=== PATIENT | female | born 1990 | race Hispanic/Latino ===

== ENCOUNTER 2018-09-22 10:41 | Outpatient (CLI) | payer OTHER | END 2018-09-22 10:42 | disposition home or self-care (01) | LOC: C.LAB 10:41 | DX: N91.1 Secondary amenorrhea (principal) ==

== ENCOUNTER 2018-09-28 11:09 | Emergency (ER) | payer OTHER ==
[2018-09-28 11:21] VITALS: BP 132/87; PULSE 90; RESP 18; TEMP 98.3; O2SAT 100
[2018-09-28] MEDS ORDERED: Sodium Chloride 0.9% 1,000 ML IV STA (11:29)
[2018-09-28] MEDS ORDERED: Sodium Chloride 0.9% 1,000 ML ONE (11:44)
[2018-09-28 11:51] LABS: BASO # 0.1 K/uL (0.0-0.2); BASO % 0.5 % (0.0-2.0); EOS # 0.1 K/uL (0.0-0.7); EOS % 0.7 % (0.0-4.0); HEMOGLOBIN 13.8 g/dL (11.0-16.0); LYMPH # 1.8 K/uL (1.0-4.3); LYMPH % 13.9 % (20.0-40.0); MEAN CELL VOLUME 86.4 fL (81.0-99.0); MEAN CORPUSCULAR HEMOGLOBIN 29.4 pg (27.0-31.0); MEAN PLATELET VOLUME 8.1 fL (7.2-11.7); MONO # 0.6 K/uL (0.0-0.8); MONO % 4.5 % (0.0-10.0); NEUT # 10.6 K/uL (1.8-7.0); NEUT % 80.4 % (50.0-75.0); RBC 4.7 Mil/uL (3.80-5.20); RED CELL DISTRIBUTION WIDTH 13.1 % (11.5-14.5); WHITE BLOOD COUNT 13.2 K/uL (4.8-10.8)
[2018-09-28 11:54] LABS: HCG,QUALITATIVE URINE POSITIVE (NEGATIVE)
[2018-09-28 11:56] LABS: SQUAMOUS EPITHIAL 3 /hpf (0-5); URINE AMORPHOUS SEDIMENT FEW /ul (<OCC); URINE BILIRUBIN NEGATIVE (NEGATIVE); URINE BLOOD NEGATIVE (NEGATIVE); URINE CLARITY Turbid (Clear); URINE COLOR Amber (YELLOW); URINE GLUCOSE (UA) NORMAL (Normal); URINE LEUKOCYTE ESTERASE NEG Leu/uL (Negative); URINE PROTEIN 1+ mg/dL (NEGATIVE); URINE UROBILINOGEN NORMAL mg/dL (0.2-1.0)
[2018-09-28 12:05] LABS: ALB/GLOB RATIO 1.8 (1.0-2.1); ALBUMIN 4.9 g/dL (3.5-5.0); ALT/SGPT 9 U/L (9-52); AST/SGOT 27 U/L (14-36); BLOOD UREA NITROGEN 10 mg/dL (7-17); CALCIUM 9.7 mg/dl (8.6-10.4); GFR NON-AFRICAN AMERICAN > 60
--- NOTE | 2018-09-28 13:01 | US ---
Date of service: 09/28/2018 Indication: , vaginal bleeding Comparison: None available Technique: 1st trimester/Ob transvaginal ultrasound Findings: The uterus measures approximately 9.6 x 5.5 x 7.4 cm. Anteverted. Cervix length measures approximately 2.4 cm. Evidence of somewhat lobulated intrauterine gestational sac measuring approximately 1.5 cm consistent with gestational age 5 weeks 5 days. No evidence of pole or yolk sac at this time. Small probable subchorionic hemorrhage measures 4.2 x 3.3 x 5.7 cm. The right ovary measures 3.7 x 3.5 x 4.0 cm. The left ovary measures 3.5 x 2.8 x 4.6 cm. Blood flow was demonstrated to both ovaries. Impression: Evidence of somewhat lobulated intrauterine gestational sac consistent with gestational age 5 weeks 5 days. No evidence of pole or yolk sac at this time. Small probable subchorionic hemorrhage measures approximately 4.2 x 3.3 x 5.7 cm. Correlate clinically and recommend follow-up as indicated.
--- NOTE | 2018-09-28 13:10 | C.PDOC ---
History Of Present Illness 28 year old female presents to ED with complaint of vaginal bleeding for the past 3 days. Patient is 8 weeks . Patient also complains of pelvic pain and cramping. Patient denies nausea, vomiting, and diarrhea. Time Seen by Provider: 09/28/18 11:23 Chief Complaint (Nursing): Female Genitourinary History Per: Patient History/Exam Limitations: no limitations Onset/Duration Of Symptoms: Days (3) Current Symptoms Are (Timing): Still Present Quality Of Discomfort: Cramping, "Pain" Associated Symptoms: denies: Fever, Nausea, Vomiting, Diarrhea Abnormal Vaginal Bleeding: Yes Last Menstral Period: 08/07/18 Past Medical History Reviewed: Historical Data, Nursing Documentation, Vital Signs Vital Signs: Last Vital Signs Temp 98.3 F 09/28/18 11:19 Pulse 90 09/28/18 11:19 Resp 18 09/28/18 11:19 BP 132/87 09/28/18 11:19 Pulse Ox 100 09/28/18 11:19 - Medical History PMH: No Chronic Diseases Surgical History: No Surg Hx Family History: States: No Known Family Hx - Social History Hx Alcohol Use: No Hx Substance Use: No Review Of Systems Constitutional: Negative for: Fever, Chills, Weakness Gastrointestinal: Negative for: Nausea, Vomiting, Diarrhea Genitourinary: Positive for: Vaginal Bleeding, Pelvic Pain Neurological: Negative for: Weakness, Numbness, Dizziness Physical Exam - Physical Exam Appears: Well, Non-toxic, No Acute Distress Skin: Normal Color, Warm, Dry Head: Atraumatic, Normacephalic Neck: Normal ROM, Supple Chest: Symmetrical, No Deformity Cardiovascular: Rhythm Regular, No Murmur Respiratory: No Accessory Muscle Use Gastrointestinal/Abdominal: Soft, Tenderness (mild suprapubic pain), No Distention, No Rebound Extremity: Capillary Refill (<2 seconds) Neurological/Psych: Oriented x3, Normal Speech, Normal Cognition ED Course And Treatment - Laboratory Results Result Diagrams: 09/28/18 11:46 09/28/18 11:46 Lab Results: Total Bilirubin 0.4 mg/dL (0.2-1.3) 09/28/18 11:46 AST 27 U/L (14-36) 09/28/18 11:46 ALT 9 U/L (9-52) 09/28/18 11:46 Alkaline Phosphatase 56 U/L (38-126) 09/28/18 11:46 Total Protein 7.6 g/dL (6.3-8.3) 09/28/18 11:46 Albumin 4.9 g/dL (3.5-5.0) 09/28/18 11:46 Globulin 2.7 gm/dL (2.2-3.9) 09/28/18 11:46 Albumin/Globulin Ratio 1.8 (1.0-2.1) 09/28/18 11:46 Urine Color Paty (YELLOW) 09/28/18 11:46 Urine Clarity Turbid (Clear) 09/28/18 11:46 Urine pH 8.0 (5.0-8.0) 09/28/18 11:46 Ur Specific [place] 1.019 (1.003-1.030) 09/28/18 11:46 Urine Protein 1+ mg/dL (NEGATIVE) H 09/28/18 11:46 Urine Glucose (UA) Normal mg/dL (Normal) 09/28/18 11:46 Urine Ketones Negative mg/dL (NEGATIVE) 09/28/18 11:46 Urine Blood Negative (NEGATIVE) 09/28/18 11:46 Urine Nitrate Negative (NEGATIVE) 09/28/18 11:46 Urine Bilirubin Negative (NEGATIVE) 09/28/18 11:46 Urine Urobilinogen Normal mg/dL (0.2-1.0) 09/28/18 11:46 Ur Leukocyte Esterase Neg Malachi/uL (Negative) 09/28/18 11:46 Urine RBC (Auto) 1 /hpf (0-3) 09/28/18 11:46 Ur Squamous Epith Cells 3 /hpf (0-5) 09/28/18 11:46 Amorphous Sediment Few /ul (<OCC) H 09/28/18 11:46 Urine HCG, Qual Positive (NEGATIVE) 09/28/18 11:46 Urine HCG, Qual Positive (NEGATIVE) 09/28/18 11:46 O2 Sat by Pulse Oximetry: 100 (in RA) - CT Scan/US OB/Transvaginal US Other Rad Studies (CT/US): Interpreted By Me, Read By Radiologist CT/US Interpretation: Accession No. : [id number]. Patient Name / ID : LOWELL GUERRERO / [id number]. Exam Date : 09/28/2018 12:11:54 ( Approved ). Study Comment : Sex / Age : F / 28Y. Creator : Tayler Alvarez MD. Dictator : Tayler Alvarez MD. Director Of Revenue Cycle Management : [employer] Consultant : Tayler Alvarez MD. Approver2 : Report Date : 09/28/2018 12:57:59. My Comment : . Date of service: 09/28/2018. Indication: , vaginal bleeding. Comparison: None available. Technique: 1st trimester/Ob transvaginal ultrasound. Findings: The uterus measures approximately 9.6 x 5.5 x 7.4 cm. Anteverted. Cervix length measures approximately 2.4 cm. Evidence of somewhat lobulated intrauterine gestational sac measuring approximately 1.5 cm consistent with gestational age 5 weeks 5 days. No evidence of pole or yolk sac at this time. Small probable subchorionic hemorrhage measures 4.2 x 3.3 x 5.7 cm. The right ovary measures 3.7 x 3.5 x 4.0 cm. The left ovary measures 3.5 x 2.8 x 4.6 cm. Blood flow was demonstrated to both ovaries. Impression: Evidence of somewhat lobulated intrauterine gestational sac consistent with gestational age 5 weeks 5 days. No evidence of pole or yolk sac at this time. Small probable subchorionic hemorrhage measures approximately 4.2 x 3.3 x 5.7 cm. Correlate clinically and recommend follow-up as indicated. Progress Note: Labs ordered with CBC, CMP, and UA. Pelvic US ordered for patient. Disposition - Disposition Referrals: Sarah Lyons MD [Staff Provider] - Disposition: HOME/ ROUTINE Disposition Time: 14:01 Condition: STABLE Additional Instructions: Follow up with your OBGYN within 1-2 days. Return to ED if feel worse. Return to ED in 2 days to repeat beta HCG and Pelvic US. Instructions: Threatened Miscarriage (DC) Forms: [employer] (Sami) - Clinical Impression Clinical Impression: Threatened - PA / MANUGRAPHER / Resident Statement MD/DO has reviewed & agrees with the documentation as recorded. (Khushbu Guerin) - Scribe Statement The provider has reviewed the documentation as recorded by the Scribe (Khushbu Guerin) All medical record entries made by the Scribe were at my direction and personally dictated by me. I have reviewed the chart and agree that the record accurately reflects my personal performance of the history, physical exam, medical decision making, and the department course for this patient. I have also personally directed, reviewed, and agree with the discharge instructions and disposition.
== END 2018-09-28 14:18 | disposition home or self-care (01) ==
LOC: C.ER 11:09
DX: O20.0 Threatened abortion (principal); Z3A.01 Less than 8 weeks gestation of pregnancy
CPT/HCPCS: 76805; 76817; 80053; 81001; 84702; 84703; 85025; 86850; 86900; 96360; 99284; J7030

== ENCOUNTER 2018-09-30 13:00 | Outpatient (CLI) | payer OTHER | END 2018-09-30 13:01 | disposition home or self-care (01) | LOC: C.LAB 13:00 ==

== ENCOUNTER 2018-10-26 11:09 | Outpatient (CLI) | payer OTHER | END 2018-10-26 11:10 | disposition home or self-care (01) | LOC: C.LAB 11:09 | DX: Z34.81 Encounter for supervision of other normal pregnancy, first trimester (principal) ==